=== PATIENT | female | born 1940 | race Caucasian/White ===

== ENCOUNTER 2017-01-20 01:49 | Observation (INO) | payer OTHER ==
[2017-01-19] MEDS: methylPREDNISolone SOD SUCC 125 MG/2 ML VIAL IVP SCH ×3 (08:00→20:00)
[~2017-01-20] VITALS: Ht 162.6 cm; Wt 99.0 kg
[~2017-01-20 01:49] MED LIST: ALBU.5I NEB; ASPI325T PO; AZITHROMYCIN 250 MG TAB PO SCH; PAXI25TA5 PO; RESP: ALBUTEROL 2.5 MG/3 ML NEB (PRN) INH; ROPI1TAB72 PO; SODIUM CHLORIDE 0.9% FLUSH 10 ML FLUSH IV FLUSH PRN
[2017-01-20 01:54] VITALS: BP 162/84; PULSE 94; RESP 16; TEMP 97.8; O2SAT 93
[2017-01-20] MEDS: methylPREDNISolone SOD SUCC 125 MG/2 ML VIAL IVP SCH ×3 (02:00→09:40)
[2017-01-20] MEDS ORDERED: ENOXAPARIN SODIUM 40 MG/0.4 ML SYRINGE SQ SCH (02:00)
[2017-01-20] MEDS ORDERED: ADVA100A INH ×2 (02:11→11:19)
[2017-01-20] MEDS ORDERED: ADVAI100I PO (02:11)
[2017-01-20 02:15] VITALS: O2SAT 95
[2017-01-20] MEDS ORDERED: AZITHROMYCIN 250 MG TAB PO ONE (02:15)
[2017-01-20] MEDS: RESP: ALBUTEROL 2.5 MG/IPRATROPIUM 0.5 MG NEB (SCH) INH ×2 (07:28→11:17)
[2017-01-20 07:29] VITALS: O2SAT 96
[2017-01-20 08:00] VITALS: BP 156/85; PULSE 86; RESP 20; TEMP 96.7; O2SAT 94
--- NOTE | 2017-01-20 08:25 | HHI.HP ---
[facility] Alix Lowe DO Admission Diagnosis Diagnoses: (1) Acute on chronic respiratory failure with hypoxia and hypercapnia Diagnosis: Principal (2) Chronic obstructive pulmonary disease with acute exacerbation Diagnosis: Principal (3) Chronic diastolic congestive heart failure Diagnosis: Secondary (4) Anxiety and depression Diagnosis: Secondary Chief Complaint: Shortness of breath and dyspnea Travel History International Travel<30 Days: No Contact w/Intl Traveler <30 Da: No Traveled to Known Affected Are: No History of Present Illness Written by Watson Dozier, acting as scribe for Dr. Kincaid on 01/20/17 at 11: 16. This note was transcribed by scribe Watson AGUILAR. I, Dr. Rylie Kincaid personally performed the history, physical exam, and medical decision making; and confirmed the accuracy of the information in the transcribed note. Authenticated by Dr. Rylie Kincaid on 01/20/17 at 11:16. 76-year-old female with known history of chronic respiratory failure, oxygen dependent, chronic obstructive pulmonary disease, chronic diastolic congestive heart failure, restless leg syndrome, history of CVA who presented to hospital because of shortness breath and dyspnea. Patient states that she ran out of her Advair 2 weeks ago and is only been using her nebulizer treatments since then. Patient states that she has tried to get a appointment with her primary medical doctor, however has been unsuccessful. A week ago she started getting worsening shortness of breath and dyspnea with wheeze and has been using her rescue inhaler and nebulizers more frequently up to every 2 hours yesterday. Patient does have chronic respiratory failure and is usually on oxygen 2 L continuously. Her daughter is a nurse and recommended that she increase it to 3 L yesterday. Because of her breathing did not improve and wheezing worsened and she went to the emergency department for evaluation. Patient was found to have significant hypoxia, wheeze and was started on treatment for chronic obstructive pulmonary disease exacerbation to include oxygen supplementation, Solu-Medrol, DuoNeb's, Zithromax. At the time evaluating the patient this morning she is on 2 L nasal cannula with O2 saturations 94%. She is no longer have any wheeze. She states that she has 200 % better and would like to go home. Patient denies any fever, chills, cough, congestion, chest pain Review of Systems Constitutional: DENIES: Diaphoretic episodes, Fatigue, Fever, Weight gain, Weight loss, Chills, Dizziness, Change in appetite, Night Sweats Eyes: DENIES: Blurred vision, Diplopia, Eye inflammation, Eye pain, Vision loss , Double Vision Ears, nose, mouth, throat: DENIES: Hearing loss, Nasal discharge, Throat pain, Ear Pain, Running Nose, Sinus Pain Respiratory: COMPLAINS OF: Shortness of breath, DENIES: Apneas, Cough, Snoring , Wheezing, Hemoptysis, Sputum production Cardiovascular: DENIES: Chest pain, Palpitations, Syncope, Dyspnea on Exertion , Lower Extremity Edema, Orthopnea Gastrointestinal: DENIES: Abdominal pain, Black stools, Bloody stools, Constipation, Diarrhea, Nausea, Vomiting, Difficulty Swallowing, Anorexia Neurologic: DENIES: Abnormal gait, Headache, Localized weakness, Paresthesias, Seizures, Speech Problems, Tremor, Poor Balance Psychiatric: COMPLAINS OF: Anxiety, Depression, DENIES: Confusion, Mood changes Past Family Social History Past Medical History Chronic respiratory failure oxygen dependent Chronic obstructive disease Chronic diastolic heart failure History of CVA Anxiety and depression Restless leg syndrome Past Surgical History Appendectomy Cholecystectomy Hysterectomy Reported Medications Reported Meds & Active Scripts Active Reported Advair Diskus Inh (Fluticasone-Salmeterol Inh) 100-50 Mcg/Blist Aer 1 Puff INH BID Rinse mouth after use. Advair Diskus 100/50 (Salmeterol Xinafoate/Fluticasone) Fluticasone/Salmeterol 100/50 Inh 1 Puff PO BID Albuterol Neb (Albuterol Sulfate) 2.5 Mg/0.5 Ml Neb 2.5 Mg NEB Q4HR NEB PRN Note: The Albuterol Sulfate Inhalation Solution is concentrated and must be diluted. Read complete instructions carefully before using. Requip (Ropinirole) 1 Mg Tab 1 Mg PO BID Paxil CR (Paroxetine HCl) 25 Mg Tab 25 Mg PO DAILY Aspirin 325 Mg Tab 325 Mg PO DAILY Allergies: Coded Allergies: Influenza Virus Vaccine (Verified Allergy, Severe, 01/19/17) ARM SWELLING Baclofen (Verified Allergy, Unknown, TARDIVE DISKENISIA, 01/19/17) Family History Reviewed is significant for mother with heart disease Social History Patient quit smoking cigarettes 6 years ago, prior to that she smoked one pack a cigarettes a day since she was a teenager. Denies any alcohol or illicit drugs Physical Exam Vital Signs Vital Signs Date Time Temp Pulse Resp B/P Pulse Ox O2 Delivery O2 Flow Rate FiO2 01/20/17 07:29 96 Nasal Cannula 3.00 01/20/17 02:15 95 Nasal Cannula 3.00 01/20/17 01:54 97.8 94 16 162/84 93 Physical Exam GENERAL: Well-developed, well-nourished, in no acute distress. alert and orientated HEENT: Head is normocephalic without any lesions or masses noted. Facial features are symmetric. Eyes: Pupils equal round reactive to light. Extraocular muscles are intact. Conjunctivae were clear. Oropharyngeal: Pharynx without any erythema edema. Tongue is midline without deviation. Buccal mucosa is moist without any masses or lesions NECK: Supple without any masses. Trachea midline no deviation. No JVD, no bruits are appreciated CARDIAC: Regular rhythm, regular rate. S1/S2 are heard. No murmurs gallops or rubs. LUNGS: Diminished breath sounds noted throughout. No wheeze, rhonchi or rales. No use of accessory muscles on inspiration or expiration. ABDOMEN: Soft, nontender. Nondistended. Bowel sounds heard in all 4 quadrants. No organomegaly or masses. Negative rebound, negative guarding EXTREMITIES: No edema, pulses are equal bilaterally. No cyanosis or clubbing NEUROLOGY: Mood and affect appear appropriate. Cranial nerves II through XII grossly intact. Muscle strength 5/5 in upper and lower extremities bilaterally. Deep tendon reflexes are 2+ in upper and lower extremities bilaterally. Imaging 01/19/17 chest x-ray: No acute disease Assessment and Plan Assessment and Plan 76-year-old female who presented to the hospital with difficulty in breathing with known history of chronic respiratory failure, chronic obstructive pulmonary disease Acute on chronic respiratory failure, oxygen dependent Secondary to chronic obstructive pulmonary disease with acute exacerbation Continue O2 supplementation maintain O2 sats greater 92%, check patient's O2 saturation off oxygen and it was 91% Continue Solu-Medrol Continue nebulizer treatments Continue Advair Continue Zithromax Incentive spirometry History of CVA, restless leg syndrome Continue home medications Chronic diastolic congestive heart failure BNP is normal Chest x-ray does not indicate any congestion or bony edema DVT prevention Sequential compression devices, subcutaneous Lovenox Discharge disposition Discharge home in stable condition Activity: Ad robby. Diet: Healthy heart diet Medications per medication reconciliation Follow-up primary medical doctor in one week Watson Dozier Jan 20, 2017 08:25 Rylie Kincaid MD Jan 20, 2017 12:48
[2017-01-20] MEDS ORDERED: PARoxetine 25 MG CONTROLLED RELEASE TAB PO SCH (09:00)
[2017-01-20] MEDS ORDERED: SODIUM CHLORIDE 0.9% FLUSH 10 ML FLUSH IV FLUSH SCH (09:00)
[2017-01-20] MEDS ORDERED: ASPIRIN 325 MG TAB PO SCH (09:00)
[2017-01-20] MEDS ORDERED: BUDESONIDE-FORMOTEROL 80/4.5 MCG INHALER INH SCH (10:00)
--- NOTE | 2017-01-20 11:17 | HHI.DCPOC ---
Discharge Care Plan Diagnosis: (1) Acute on chronic respiratory failure with hypoxia and hypercapnia (2) Chronic obstructive pulmonary disease with acute exacerbation Goals to Promote Your Health * To prevent worsening of your condition and complications * To maintain your health at the optimal level Directions to Meet Your Goals Take your medications as prescribed Follow your dietary instruction Follow activity as directed Keep your appointments as scheduled Take your immunizations and boosters as scheduled If your symptoms worsen call your PCP, if no PCP go to Urgent Care Center or Emergency Room Smoking is Dangerous to Your Health. Avoid second hand smoke Call the 24-hour hour crisis hotline for domestic abuse at Watson Dozier Jan 20, 2017 11:17
[2017-01-20] MEDS ORDERED: MEDR4PAK PO (11:19)
[2017-01-20] MEDS ORDERED: AZIT250T3 PO (11:19)
[2017-01-20 12:00] VITALS: BP 151/76; PULSE 105; RESP 21; TEMP 97.2; O2SAT 91
[2017-01-20] MEDS ORDERED: AZITHROMYCIN 250 MG TAB PO SCH (21:00)
== END 2017-01-20 14:10 | disposition home or self-care (01) ==
LOC: NEDDLT 01:49 → UNDOADMOB 01:52 → PH3A 01:52 → UNDODISOB 14:10
PROVIDERS: ADMIT Hospitalist; ATTEND Hospitalist
DX: J44.1 Chronic obstructive pulmonary disease with (acute) exacerbation (principal); J96.21 Acute and chronic respiratory failure with hypoxia; J96.22 Acute and chronic respiratory failure with hypercapnia; I50.32 Chronic diastolic (congestive) heart failure; F41.9 Anxiety disorder, unspecified; F32.9 Major depressive disorder, single episode, unspecified; G25.81 Restless legs syndrome; Z99.81 Dependence on supplemental oxygen; Z87.891 Personal history of nicotine dependence; Z86.73 Personal history of transient ischemic attack (TIA), and cerebral infarction without residual deficits
CPT/HCPCS: 36600; 71010; 80053; 82805; 83605; 83880; 84484; 85025; 87040; 93005; 94150; 94640; 94664; 96365; 96367; 96375; 99291; G0378; J0456; J1650; J2543; J2930; J7050; 99281